=== PATIENT | female | born 1980 | race Caucasian/White ===

== ENCOUNTER 2018-01-15 11:11 | Emergency (ER) | payer MEDICARE, MEDICAID ==
[~2018-01-15] VITALS: Ht 152.4 cm; Wt 77.4 kg
[2018-01-15 11:44] VITALS: BP 131/79
[2018-01-15] MEDS ORDERED: CLIN150C2 PO (12:15)
== END 2018-01-15 12:37 | disposition home or self-care (01) ==
LOC: ER 11:12
DX: L02.01 Cutaneous abscess of face (principal)
CPT/HCPCS: 99284

== ENCOUNTER 2018-02-09 18:54 | Emergency (ER) | payer MEDICARE, MEDICAID ==
[~2018-02-09] VITALS: Ht 152.4 cm; Wt 93.2 kg
[~2018-02-09 18:54] MED LIST: CLIN150C2 PO
[2018-02-09] MEDS ORDERED: ibuprofen tablet 400 MG TABLET PO ONE (20:15)
[2018-02-09] MEDS ORDERED: proparacaine 0.5% ophthalmic drops 15ml EACHEYE ONE (20:15)
[2018-02-09] MEDS ORDERED: erythromycin ophthalmic ointment 1gm tube LEFTEYE ONE (21:00)
[2018-02-09 22:00] VITALS: BP 132/93
== END 2018-02-09 22:04 | disposition home or self-care (01) ==
LOC: ER 18:54
DX: S05.02XA Injury of conjunctiva and corneal abrasion without foreign body, left eye, initial encounter (principal); X58.XXXA Exposure to other specified factors, initial encounter; Y93.89 Activity, other specified; Y92.69 Other specified industrial and construction area as the place of occurrence of the external cause; Y99.9 Unspecified external cause status
CPT/HCPCS: 99283

== ENCOUNTER 2020-11-27 13:22 | Emergency (ER) | payer MEDICARE, MEDICAID ==
[~2020-11-27] VITALS: Ht 152.4 cm; Wt 98.6 kg
[2020-11-27 15:35] VITALS: BP 153/91
[2020-11-27] MEDS ORDERED: ciprofloxacin 0.3% 2.5ml ophthalmic solution LEFTEYE ONE (15:50)
== END 2020-11-27 16:22 | disposition home or self-care (01) ==
LOC: ER 13:23
DX: H10.89 Other conjunctivitis (principal); H57.12 Ocular pain, left eye
CPT/HCPCS: 99283